=== PATIENT | female | born 1945 | race Caucasian/White ===

== ENCOUNTER 2020-02-16 13:44 | Inpatient (IN) ==
[~2020-02-16 13:44] MED LIST: Total Joint Mixture (50 ml) INTRAART ONE
[2020-02-16] MEDS ORDERED: CeFAZolin Syr 2,000MG/20 ML 2,000 MG/20 ML SYRINGE IVPB ONE (14:04)
[2020-02-16] MEDS ORDERED: Ringers Solution, Lactated 1,000 ML IVC SCH ×2 (14:15→18:58)
[2020-02-16] MEDS ORDERED: *HR* Propofol 200 MG/20 ML VIAL IVP ONE (14:48)
[2020-02-16] MEDS ORDERED: *HR* FentaNYL (PF) 100 MCG/2 ML VIAL ONE (14:48)
[2020-02-16] MEDS ORDERED: *HR* Midazolam HCl 2 MG/2 ML VIAL ONE (14:48)
[2020-02-16] MEDS ORDERED: Dexamethasone 4 MG/ML VIAL ONE ×2 (14:49→15:31)
[2020-02-16] MEDS ORDERED: Ondansetron 4 MG/2 ML VIAL ONE (14:49)
[2020-02-16] MEDS ORDERED: Lidocaine HCL 4 ML Topical Solution (Laryng-O-Jet Kit Sterile Pak) TP ONE (14:49)
[2020-02-16] MEDS ORDERED: Lidocaine -MPF 2% 2 ML VIAL ONE (14:49)
[2020-02-16] MEDS ORDERED: *HR* Succinylcholine 200 MG/10 ML VIAL IVP ONE (14:49)
[2020-02-16] MEDS ORDERED: Ropivacaine/PF 0.5% 30 ML VIAL ONE (15:27)
[2020-02-16] MEDS ORDERED: Ondansetron 4 MG/2 ML VIAL IVP ONE (15:27)
[2020-02-16] MEDS ORDERED: Ethanol\\Acetic Acid\\Na Ace\\Ben 1,000 ML IRRIG.SOLN IR ONE ×2 (15:29→15:47)
[2020-02-16] MEDS ORDERED: Vancomycin 1,000 MG VIAL ONE (15:29)
[2020-02-16] MEDS ORDERED: Tranexamic Acid 1,000 MG/10 ML VIAL ONE (16:04)
[2020-02-16] MEDS ORDERED: *HR* PHENYLEPHRINE 1,000 MCG/10 ML SYRINGE IVP ONE (16:19)
[2020-02-16] MEDS ORDERED: *HR* HYDROMORPHONE 2 MG/ML VIAL ONE (16:26)
[2020-02-16] MEDS: *HR* HYDROmorphone PF 0.5 MG/0.5 ML SYRINGE IVP PRN ×4 (17:52→18:18)
[2020-02-16 18:38] LABS: Hematocrit 37.4 % (35.3-44.9); Hemoglobin 11.8 g/dL (11.5-15.4)
[2020-02-16] MEDS ORDERED: D5% in Water 1,000 ML IVC PRN (18:58)
[2020-02-16] MEDS ORDERED: *HR* Dextrose 50 % in Water (Syg) 50 ML SYRINGE IVP PRN (18:58)
[2020-02-16] MEDS ORDERED: *HR* Promethazine 25 MG/ML VIAL IVP PRN (18:58)
[2020-02-16] MEDS ORDERED: Ondansetron 4 MG/2 ML VIAL IVP PRN (18:58)
[2020-02-16] MEDS ORDERED: CeFAZolin 2 GM/120 ML BAG IVPB SCH (18:58)
[2020-02-16] MEDS ORDERED: MOM Conc 10 ML UD.LIQ PO PRN (18:58)
[2020-02-16] MEDS ORDERED: HYDROcodone BIT/Homatropine 5 MG TABLET PO PRN (18:58)
[2020-02-16] MEDS ORDERED: Dextrose Gel 15 GM/37.5 ML TUBE PO PRN ×2 (18:58)
[2020-02-16] MEDS ORDERED: Sennosides 8.6 MG TABLET PO PRN (18:58)
[2020-02-16] MEDS ORDERED: Naloxone 0.4 MG/ML INJ IVP PRN (18:58)
[2020-02-16] MEDS: Ascorbic Acid 500 MG TABLET PO SCH (19:36)
[2020-02-16] MEDS: *HR* HYDROcodone/Acet 10/325 mg TABLET PO PRN (19:36)
[2020-02-16] MEDS: Insulin LISPRO 300 UNITS/3 ML VIAL SQ SCH ×2 (23:44→23:45)
[2020-02-17] MEDS: *HR* HYDROcodone/Acet 10/325 mg TABLET PO PRN ×2 (02:29→13:47)
[2020-02-17] MEDS ORDERED: CeFAZolin 2 GM/120 ML BAG IVPB SCH (04:00)
[2020-02-17 06:51] LABS: Basophils % 0.2 %; Hematocrit 32.5 % (35.3-44.9); Hemoglobin 10.4 g/dL (11.5-15.4); Immature Granulocytes % 0.2 % (0-4); Lymphocytes # 1.4 K/mcL (0.6-4.6); Lymphocytes % 11.1 %; Mean Corpuscular Hemoglobin 30.5 pg (28.0-33.3); Mean Corpuscular Volume 95.3 fL (83.0-100.0); Mean Platelet Volume 10.7 fL (9.4-12.4); Monocytes # 0.8 K/mcL (0.0-1.3); Monocytes % 6.3 %; Neutrophils # 10.2 K/mcL (1.6-8.9); Platelet Count 152 K/mcL (140-400); Red Blood Count 3.41 M/mcL (3.82-4.97); Red Cell Distribution Width 13.2 % (11.5-14.5); Segmented Neutrophils % 82.2 %; White Blood Count 12.4 K/mcL (4.3-11.1)
[2020-02-17 07:09] LABS: BUN/Creatinine Ratio 21 (6-26); Blood Urea Nitrogen 20 mg/dL (8-23); Calcium 8.5 mg/dL (8.6-10.3); Carbon Dioxide 23 mEq/L (23-29); Chloride 105 mEq/L (98-107); Glucose 134 mg/dL (70-105); Osmolality,Calculated 287 (280-300); Potassium 4.6 mEq/L (3.5-5.1); Sodium 136 mEq/L (136-145); eGFR For African Americans > 60 (> 60); eGFR For Non-African Americans 58 (> 60)
[2020-02-17] MEDS ORDERED: CALCIUM CARB PO SCH (09:00)
[2020-02-17] MEDS ORDERED: VITAMIN D3 PO SCH (09:00)
[2020-02-17] MEDS ORDERED: [UNRECOGNIZED DRUG - OTHER] PO SCH (09:00)
[2020-02-17] MEDS ORDERED: VIT K1 PO SCH (09:00)
[2020-02-17] MEDS ORDERED: Aspirin Enteric Coated 81 MG Tablet PO SCH (09:00)
[2020-02-17] MEDS ORDERED: NON-FORMULARY MEDICATION 1 EACH EACH (Multivitamin [Daily Multiple Vitamin] 1 TAB) PO SCH (09:00)
[2020-02-17] MEDS: Cholecalciferol (D-3) 1,000 UNIT (25MCG) TABLET PO SCH (09:41)
[2020-02-17] MEDS: Ascorbic Acid 500 MG TABLET PO SCH ×2 (09:41→17:25)
[2020-02-17] MEDS: Cyanocobalamin (B-12) 1,000 MCG TABLET PO SCH (09:41)
[2020-02-17] MEDS: Multivit/Ca/Min/Fe/FA 1 TAB TABLET PO SCH (09:42)
[2020-02-17] MEDS: Loratadine 10 MG TABLET PO SCH (09:42)
[2020-02-17] MEDS: Aspirin Enteric Coated 81 MG Tablet PO SCH (09:42)
[2020-02-17] MEDS: Fluticasone Propionate Nasal 50 MCG/SPRAY BOTTLE NS SCH (09:46)
[2020-02-17] MEDS: Insulin LISPRO 300 UNITS/3 ML VIAL SQ SCH ×4 (09:47→21:24)
[2020-02-18 02:19] LABS: Basophils % 0.1 %; Eosinophils % 0.2 %; Hematocrit 28.7 % (35.3-44.9); Hemoglobin 9.4 g/dL (11.5-15.4); Immature Granulocytes % 0.3 % (0-4); Lymphocytes % 21.7 %; Mean Corpuscular HGB Conc 32.8 g/dL (31.6-35.5); Mean Corpuscular Hemoglobin 31.1 pg (28.0-33.3); Mean Platelet Volume 10.9 fL (9.4-12.4); Neutrophils # 6.1 K/mcL (1.6-8.9); Platelet Count 123 K/mcL (140-400); Red Blood Count 3.02 M/mcL (3.82-4.97); Red Cell Distribution Width 13.3 % (11.5-14.5); Segmented Neutrophils % 66.7 %; White Blood Count 9.2 K/mcL (4.3-11.1)
[2020-02-18 02:40] LABS: BUN/Creatinine Ratio 32 (6-26); Blood Urea Nitrogen 29 mg/dL (8-23); Calcium 8.7 mg/dL (8.6-10.3); Carbon Dioxide 26 mEq/L (23-29); Chloride 104 mEq/L (98-107); Glucose 125 mg/dL (70-105); Osmolality,Calculated 293 (280-300); Potassium 4.4 mEq/L (3.5-5.1); Sodium 138 mEq/L (136-145); eGFR For African Americans > 60 (> 60); eGFR For Non-African Americans > 60 (> 60)
[2020-02-18] MEDS: Insulin LISPRO 300 UNITS/3 ML VIAL SQ SCH (07:56)
[2020-02-18] MEDS: Multivit/Ca/Min/Fe/FA 1 TAB TABLET PO SCH (08:09)
[2020-02-18] MEDS: Ascorbic Acid 500 MG TABLET PO SCH (08:10)
[2020-02-18] MEDS: Cyanocobalamin (B-12) 1,000 MCG TABLET PO SCH (08:10)
[2020-02-18] MEDS: Aspirin Enteric Coated 81 MG Tablet PO SCH (08:10)
[2020-02-18] MEDS: Cholecalciferol (D-3) 1,000 UNIT (25MCG) TABLET PO SCH (08:11)
[2020-02-18] MEDS: Loratadine 10 MG TABLET PO SCH (08:15)
[2020-02-18] MEDS: Fluticasone Propionate Nasal 50 MCG/SPRAY BOTTLE NS SCH (08:35)
[2020-02-18 10:55] VITALS: BP 144/73
[2020-02-18] MEDS: *HR* HYDROcodone/Acet 10/325 mg TABLET PO PRN (10:56)
== END 2020-02-18 11:28 | disposition home health service (06) | DRG 467 ==
LOC: SAMDAY 13:44 → 3NENU 18:56
PROVIDERS: ADMIT Orthopaedic Surgery; ATTEND Orthopaedic Surgery